=== PATIENT | female | born 1955 | race Caucasian/White ===

== ENCOUNTER → 2017-01-22 | Outpatient (CLI) | payer OTHER ==
[~2017-01-22] MED LIST: ASPI81TA82 PO; ATEN-104 PO; EMPA1TAB3 PO; GLIM4 PO; K-TA10TA5 PO; MAGN400T19 PO; NIFE1TAB86 PO; PRAV40 PO; PRIN10TA PO; VITA500015 PO
--- NOTE | 2017-01-22 15:24 | RADRPT ---
EXAM DATE/TIME: 01/22/2017 00:00 [place] COMPARISON: No previous studies available for comparison. OUTSIDE STUDY REVIEWED: Abdomen and pelvis CT dated 01/03/2017. INDICATIONS : CT Guided Retroperitoneal Lymph Node Biopsy FINDINGS: Patient has a recent diagnosis of endometrial carcinoma. There is a borderline enlarged left para-aor tic lymph node identified in the midabdomen. There are also be a few left external iliac lymph nodes present, one of which is enlarged. Request has been made for percutaneous biopsy of one of these lymp h nodes. Secondary to patient body habitus, a percutaneous biopsy will be extremely challenging if not impossi ble since her abdominal wall extends to the gantry on the prior CT. The only lymph node which is amen able to biopsy is the left para-aortic lymph node adjacent to the aortic bifurcation. It measures 12 x 11 mm and is therefore slightly enlarged by size criteria. I would suggest correlating with any old imaging studies to determine if this is a stable or new finding. If none are available and followup or PET CT is not desired for further evaluation, we can attempt CT-guided percutaneous biopsy. Nanci r, given the patient body habitus and the depth the lesion (our longest needle barely reaches the les ion), they will be challenging. CONCLUSION: As described above, biopsy of a left para-aortic lymph node will be very challenging if not impossibl e secondary to the depth of the lesion and patient body habitus. Prior to attempting, I would like to make sure that the patient would be able to lie prone for the procedure and I would like to make theodora e that it is not possible to compare with any prior imaging studies or clinically reasonable to corre late with PET-CT. If the patient is able to lie prone for the procedure I suggest attempt at percutaneous biopsy. Urban Sandhu MD on January 22, 2017 at 15:16 Board Certified Radiologist. This report was verified electronically.
== END ==
LOC: HRAD 14:00
PROVIDERS: ATTEND Radiology Diagnostic Ultrasound
DX: C54.1 Malignant neoplasm of endometrium (principal)
CPT/HCPCS: 76140